=== PATIENT | female | born 1965 | race Caucasian/White ===

== ENCOUNTER → 2025-01-30 11:46 | Outpatient (BNVA) | payer OTHER, SELFPAY | PROVIDERS: PCP Nurse Practitioner Family; Visit Provider Emergency Medicine | DX: S00.531A Contusion of lip, initial encounter (principal); S46.811A Strain of other muscles, fascia and tendons at shoulder and upper arm level, right arm, initial encounter; S46.812A Strain of other muscles, fascia and tendons at shoulder and upper arm level, left arm, initial encounter; W21.89XA Striking against or struck by other sports equipment, initial encounter; Z02.79 Encounter for issue of other medical certificate | CPT/HCPCS: 99202 ==